=== PATIENT | female | born 1940 | race Caucasian/White ===

== ENCOUNTER → 2016-06-14 | Outpatient (CLI) | payer OTHER | PROVIDERS: ATTEND Internal Medicine | DX: R13.12 Dysphagia, oropharyngeal phase (principal) | CPT/HCPCS: 74230; 92611; G8996; G8997; G8998 ==

== ENCOUNTER → 2017-07-28 | Outpatient (CLI) | payer OTHER | LOC: BHFA 15:30 | PROVIDERS: ATTEND Internal Medicine Cardiovascular Disease | DX: I49.3 Ventricular premature depolarization (principal) ==

== ENCOUNTER → 2017-08-26 | Outpatient (CLI) | payer OTHER | LOC: BHFA 13:00 | PROVIDERS: ATTEND Internal Medicine Cardiovascular Disease | DX: R06.02 Shortness of breath (principal) | CPT/HCPCS: 78452; 93017; A9500; J2785 ==

== ENCOUNTER → 2018-02-20 | Outpatient (CLI) | payer OTHER | LOC: FIMAGING 14:01 | PROVIDERS: ATTEND Registered Nurse | DX: M12.851 Other specific arthropathies, not elsewhere classified, right hip (principal) ==

== ENCOUNTER → 2018-03-15 | Outpatient (CLI) | payer OTHER ==
[~2018-03-15] MED LIST: IOPAMIDOL (ISOVUE-M 200) 20 ML VIAL ONE; LIDOCAINE 1% 300 MG/30 ML SDV ONE
[2018-03-15 09:02] LABS: INR 0.97 (0.83-1.16); PROTIME(PATIENT) 13.1 SEC (12.0-15.0)
== END | disposition home or self-care (01) ==
LOC: FIMAGING 08:23
PROVIDERS: ATTEND Orthopaedic Surgery Orthopaedic Surgery of the Spine
PROC: B01B1ZZ Fluoroscopy of Spinal Cord using Low Osmolar Contrast (ICD-10-PCS; principal; 2018-03-15)
DX: M47.26 Other spondylosis with radiculopathy, lumbar region (principal); M43.16 Spondylolisthesis, lumbar region; M48.061 Spinal stenosis, lumbar region without neurogenic claudication; M43.8X4 Other specified deforming dorsopathies, thoracic region
CPT/HCPCS: 62304; 72132; 72265; Q9966

== ENCOUNTER 2018-04-06 10:34 | Inpatient (IN) | payer OTHER ==
[2018-04-06] MEDS ORDERED: BUPIVACAINE/EPI 0.5% 30 ML SDV ONE (10:53)
[2018-04-06] MEDS ORDERED: VANCOMYCIN 500 MG/10 ML VIAL IV ONE (10:54)
[2018-04-06] MEDS ORDERED: BACITRACIN 50,000 UNITS/10 ML SYR IRR ONE (10:55)
[2018-04-06] MEDS ORDERED: LR 1,000 ML IV ONE (11:28)
--- NOTE | 2018-04-06 12:17 | PDANEPAE ---
ANE Past Medical History - Cardiovascular History Hx Hypertension: Yes Hx Arrhythmias: Yes Hx Chest Pain: No Hx Coronary Artery / Peripheral Vascular Disease: No Hx CHF / Valvular Disease: No Hx Palpitations: No Cardiovascular History Comment: sss, ppm - Pulmonary History Hx COPD: No Hx Asthma/Reactive Airway Disease: No Hx Recent Upper Respiratory Infection: No Hx Oxygen in Use at Home: No Hx Sleep Apnea: Yes Sleep Apnea Screening Result - Last Documented: Positive Pulmonary History Comment: ANITRA uses CPAP - Neurologic History Hx Cerebrovascular Accident: No Hx Seizures: No Hx Dementia: No - Endocrine History Hx Diabetes: No - Renal History Hx Renal Disorders: No - Liver History Hx Hepatic Disorders: No - Neurological & Psychiatric Hx Hx Neurological and Psychiatric Disorders: Yes Neurological / Psychiatric History Comment: essential tremor. anxiety - Cancer History Hx Cancer: No - Congenital Disorder History Hx Congenital Disorders: No - GI History Hx Gastrointestinal Disorders: No - Other Health History Other Health History: loose tooth left back - Chronic Pain History Chronic Pain: No - Surgical History Prior Surgeries: none in last 5 yrs. 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: [employer] Pacemaker Model: Evia DR-T Pacemaker Mode: DDD Date Pacemaker Last Checked: 01/30/18 ANE Patient History - Allergies Allergies/Adverse Reactions: No Known Allergies Allergy (Verified 03/23/18 12:41) - Home Medications Home medications: home medication list seen and reviewed Home Medications: Alendronate Sodium [Fosamax 70 MG (*)] 70 mg PO FR@0700 03/23/18 [Last Taken 1 Week Ago ~03/30/18] Aspirin [Aspirin 81mg (*)] 81 mg PO DAILY 03/23/18 [Last Taken 04/04/18] Carboxymethylcellulose 1% [Refresh Celluvisc (*)] 1 drop EACHEYE DAILY PRN 03/23 [Last Taken 3 Months Ago ~01/04/18] MIRTAZAPINE [Remeron 7.5 mg] 7.5 - 15 mg PO HS 03/23/18 [Last Taken 04/05/18] Multivitamins [Multivitamin (*)] 1 each PO DAILY 03/23/18 [Last Taken 04/05/18] Nebivolol HCl [Bystolic 5 mg (*)] 2.5 mg PO BID 03/23/18 [Last Taken 04/06/18 08 :00] [place]-3 Fatty Acids [Fish Oil 1000 mg (*)] 1,000 mg PO DAILY 03/23/18 [Last Taken 04/05/18] Zolpidem Tartrate [Ambien 5MG (*)] 5 mg PO HS PRN 03/23/18 [Last Taken 04/05/18] - NPO status NPO Status: no food or drink >8 hours NPO Since - Liquids (Date): 04/06/18 NPO Since - Liquids (Time): 09:00 NPO Since - Solids (Date): 04/05/18 NPO Since - Solids (Time): 18:00 - Smoking Hx Smoking Status: Never smoked - Family Anes Hx Family Hx Anesthesia Complications: none ANE Labs/Vital Signs - Vital Signs Blood Pressure: 146/76 Heart Rate: 60 Respiratory Rate: 14 O2 Sat (%): 97 Height: 152.4 cm Weight: 53.524 kg ANE Physical Exam - Airway Neck exam: FROM Mallampati Score: Class 2 Mouth exam: normal dental/mouth exam - Pulmonary Pulmonary: clear to auscultation - Cardiovascular Cardiovascular: regular rate and rhythym - ASA Status ASA Status: III
[2018-04-06] MEDS ORDERED: TRANEXAMIC ACID 1,000 MG in NS 100 ML IV ONE ×2 (13:01→15:45)
[2018-04-06] MEDS ORDERED: ceFAZolin 2 GM/DEXTROSE 100 ML IV ONE (13:01)
--- NOTE | 2018-04-06 13:02 | PDHPUP ---
History & Physical Update H&P update statement: This history and physical update is based on an assessment of the patient which was completed after admission or registration (within 24 hours), but prior to the surgery/procedure. H&P update: H&P reviewed & patient examined, no change in patient's condition since H&P completed
[2018-04-06] MEDS ORDERED: REMIFENTANIL HCL 1 MG VIAL ONE (13:17)
[2018-04-06] MEDS ORDERED: fentaNYL 100 MCG/2 ML INJ ONE ×2 (13:17→14:22)
[2018-04-06] MEDS ORDERED: PROPOFOL 200 MG/20 ML VIAL ONE (13:18)
[2018-04-06] MEDS ORDERED: PROPOFOL/EMULSION 500 MG/50 ML BOTTLE IV ONE (13:18)
[2018-04-06] MEDS ORDERED: ROCURONIUM 50 MG/5 ML VIAL ONE (13:22)
[2018-04-06] MEDS ORDERED: DEXAMETHASONE 4 MG/ML VIAL ONE ×3 (13:22)
[2018-04-06] MEDS ORDERED: SUGAMMADEX SODIUM 200 MG/2 ML VIAL IVP ONE (14:18)
[2018-04-06] MEDS ORDERED: PHENYLEPHRINE 10 MG/ML SDV ONE (14:31)
[2018-04-06] MEDS ORDERED: HYDROmorphONE/DILAUDID 2 MG/ML INJ ONE (15:40)
[2018-04-06] MEDS ORDERED: ceFAZolin 1 GM VIAL ONE ×2 (16:40→16:41)
[2018-04-06] MEDS ORDERED: ONDANSETRON 4 MG/2 ML VIAL ONE (16:57)
[2018-04-06] MEDS ORDERED: ALBUTEROL 3 ML DEYVIAL IH PRN (17:00)
[2018-04-06] MEDS ORDERED: NALOXONE HCL 0.4 MG/ML INJ IVP PRN (17:00)
[2018-04-06] MEDS ORDERED: LABETALOL HCL 5 MG/ML 20 ML MDV IVP PRN (17:00)
[2018-04-06] MEDS ORDERED: HYDROmorphONE/DILAUDID 2 MG/ML INJ IVP PRN (17:00)
[2018-04-06] MEDS ORDERED: METOCLOPRAMIDE 10 MG/2 ML VIAL IVP PRN (17:00)
[2018-04-06] MEDS ORDERED: DIAZEPAM 5 MG/ML 1 ML SYR IVP PRN (17:00)
[2018-04-06] MEDS ORDERED: ONDANSETRON 4 MG/2 ML VIAL IVP PRN (17:00)
[2018-04-06] MEDS ORDERED: fentaNYL 100 MCG/2 ML INJ IVP PRN (17:00)
[2018-04-06] MEDS ORDERED: DEXAMETHASONE 4 MG/ML VIAL IVP PRN (17:00)
[2018-04-06] MEDS ORDERED: MEPERIDINE 25 MG/0.5 ML AMP IVP PRN (17:00)
[2018-04-06] MEDS ORDERED: PROMETHAZINE HCL 25 MG/ML INJ IVP PRN (17:00)
[2018-04-06] MEDS ORDERED: POLYETHYLENE GLYCOL 3350 17 GM PKT PO PRN (17:20)
[2018-04-06] MEDS ORDERED: BISACODYL 10 MG SUPP PR PRN (17:20)
[2018-04-06] MEDS ORDERED: MAGNESIUM HYDROXIDE 30 ML UDCUP PO PRN (17:20)
[2018-04-06] MEDS ORDERED: LACTULOSE 20 GM/30 ML UDCUP PO PRN (17:20)
[2018-04-06] MEDS ORDERED: DIAZEPAM 5 MG/ML 1 ML SYR ONE (17:59)
[2018-04-06] MEDS: METHOCARBAMOL 750 MG TAB PO PRN (18:45)
[2018-04-06] MEDS: ACETAMINOPHEN 500 MG TAB PO SCH (21:08)
[2018-04-06] MEDS: ceFAZolin 2 GM/DEXTROSE 100 ML IV SCH (21:09)
[2018-04-06] MEDS: FAMOTIDINE 20 MG TAB PO SCH (21:10)
[2018-04-06] MEDS: NEBIVOLOL HCL 5 MG TAB PO SCH (21:10)
[2018-04-06] MEDS: SENNOSIDES/DOCUSATE SODIUM TAB PO SCH (21:11)
[2018-04-06] MEDS: oxyCODONE IR 5 MG TAB PO PRN (21:12)
[2018-04-06] MEDS: MIRTAZAPINE 15 MG TAB PO SCH (21:15)
--- NOTE | 2018-04-06 21:17 | SUROPNOTE ---
[facility] Operative Report - Surgery Date: 04/06/18 Pre-operative Diagnoses: L4/5 Degenerative disc disease and spondylosis L4/5 Degenerative spondylolisthesis Bilateral L4 pars insufficiency fractures Lumbar spinal stenosis Post-operative Diagnosis: Same Procedures: Left L4/5 Minimally invasive extreme lateral interbody fusion (XLIF) Lt L4/5 Anterior column plate and screw fixation L4/5 Open Posterior Lumbar Fusion with Instrumentation L5 laminectomy and decompression L4 Brewer laminectomy Reduction of bilateral L4 pars insufficiency fractures Structural use of allograft Structural use of morselized autograft Use of intra-operative fluoroscopy Use of intra-operative neuromonitoring, including EMG and SSEP modalities Use of a surgical microscope Surgeon: Chava Mares MD Assist: Talat Larose Anesthesia: General endotracheal anesthesia Findings: As expected spondylolisthesis, spinal stenosis, facet hypertrophy Estimated Blood Loss: 200mL Drains: Hemovac sewn to skin Specimens: None Complications: None Condition: Transferred to PACU in stable condition Implants: NuVasive XLIF Cage: 10 x 22 x 55 x 15deg Anterior Column Plate: modulus incorporated plate Anterior Screw: 55mm modulus screw Posterior Pedicle Screws: 6.5mm x 45mm Paulie: 40mm x 2 Allograft: 5mL allograft used structurally in the disc space and interbody cage (lateral); morselized local autograft and allograft in the posterolateral gutters Indications: This patient was seen in my office and diagnosed with degenerative spondylolisthesis and spinal stenosis. I have explained all options of treatment for the patient, and the patient has elected to proceed with operative management. I have explained all risks, benefits, and alternatives of the proposed procedure. The risks that we have discussed include , blindness, nerve damage, infection, dural tear, failure of surgery to alleviate pre-operative symptoms, nonunion, and possible need for further operation. I explained separately the risks of allograft, including infection and disease transfer. I specifically discussed the additional risks of XLIF, including but not limited to vascular damage, femoral nerve radiculopathy, or weakness. In addition to the aforementioned procedure, I discussed with the patient that other procedures may be indicated during the course of surgery that would be considered in the patients best interest. The patient expressed understanding of this and agreed to move forward with operative management. Pre-operative: The proposed incision sites were marked in the pre-operative holding area by me. The patient was then taken to the operating room in stable condition. Following smooth induction of general anesthesia, the patient was positioned in a lateral decubitus position on a flat OR table with all down surfaces well- padded. The patient was then prepped and draped in the usual sterile fashion. Pre-operative antibiotics were administered within one hour of the incision. A surgical timeout was performed, and all parties involved in the procedure were in agreement on the correct patient, location, and procedure to be performed. Level localization and spinal pause: After the table was broken to allow for appropriate access to the L4/5 disc space, x-rays were taken to make sure that the operative disc space was properly marked out. Once the disk space was marked out from a lateral approach , a local anesthetic with epinephrine was injected into the area and approximately a 4cm incision was then made over the side overlying the disk directly lateral to it. Subdermal fat was then explored and moved aside. The external and internal oblique muscles were then dissected bluntly using finger and Metzenbaum scissors. The retroperitoneal space was then entered using manual palpation. The transverse process and the disk space of the operative level was palpated. A wire was then placed into the operative disc space and confirmed on both AP and lateral radiographs. Serial dilators were then placed in position here to allow for an XLIF retractor. The XLIF retractor was then placed over the operative disk space. This was again confirmed by AP and lateral radiographs and then a nerve detection system was used to ensure that the lumbar plexus was not violated. Placement of XLIF interbody cage, reduction of spondylolisthesis and bilateral pars insufficiency fractures: A posterior vasu was then placed into the posterior third of the vertebral body and retracted forward or anteriorly. The L4/5 disc space was then incised and the annulus fibrosis was removed. Serial disk preparation tools including a Owusu curette, box cutters, #5 Kerrison and pituitary rongeur was used to prep the disk space. This was also flushed several times to ensure that the disk space was empty of any remaining debris. At this time, a trial was then placed and the appropriately sized cage was selected. The cage was then packed with 5 mL of allograft bone and this was gently malleted in place and again confirmed by both AP and lateral radiographs. The regulator pin inserter was then removed. Attention was then turned towards the plate placement. At this time, an anterior column plate was then placed laterally over the cage itself. A screw hole were then drilled into the cephalad level. Appropriately-sized screws were then placed into both vertebrae with just enough purchase for a bicortical bite within the vertebral body. Again, radiographs confirmed both placement of the graft and the screws. The spondylolisthesis and pars insufficiency fractures were noted to be reduced on lateral xray. At this time, all monitoring was noted to be stable. Closure of lateral incision: Attention was then turned towards closure. Several #1 Vicryl sutures were used to reapproximate the fascia overlying the oblique muscles. A 2-0 Monocryl sutures were then used to repair the subcutaneous tissues and a 4-0 Monocryl was used to repair the skin. Glue was then used over the top of this and this surgical site was then sealed completely. Patient transfer: The patient was then carefully transferred to a Gutierrez table, and positioned prone with all down surfaces well-padded. The patient was then prepped and draped in the usual sterile fashion. A second surgical timeout was performed, and all parties involved in the procedure were in agreement on the correct patient, location, and procedure to be performed. Pedicle screw placement: Using a freehand technique with fluoroscopic assistance, a standard entry point was selected based on bony landmarks. A ship pilot hole was created with a high speed britany. The pedicle tract was then cannulated using a curved Lenke probe. A ball-tipped feeler was then passed through the cannulated tract to ensure that there was no breach on all sides: superior, inferior, medial, lateral, and ventral. A tap was then used up to a size that was 1mm below the final screw size based on pre-operative templating. A ball-tipped feeler was used again in a similar fashion to ensure a safe trajectory without breach. The tract length was then measured and recorded for future pedicle screw selection and placement. The pedicle tract itz then injected with a small amount of microfibrillar collagen agent to ensure hemostasis. This sequence was performed for all levels that would be included in the fusion. An appropriately-sized screw was placed at each level and confirmed fluoroscopically. All screws were then stimulated. Each screw was stimulated and potentials were all above 20 milliAmps. This process was repeated in a similar fashion on the contralateral side. Of note, the right L5 screw was re-adjusted when mA were noted to be 16mA and the screw was noted to be lateral. Decompression: All paraspinal muscles were dissected sub-periostally from the spinous processes and laminae. The dissection was then carried out to include the extent of decompression that was determined before surgery, with care being taken to preserve facet capsules that would not be included in the final fusion. The lateral pars was identified for all levels to be included in the proposed decompression. Using a combination of rongeur, britany, and Kerrison rongeurs, the spinous processes and laminae were removed at all levels to the subarticular lateral recess. Care was taken to leave a minimum of 8mm of bone from the lateral border of the pars at each decompressed level. The ligamentum flavum was resected at all levels. Using a Kerrison rongeur angled back, additional ligamentum flavum was removed from under the caudal aspect of the cephalad-most level, and from under the cephalad aspect of the caudal-most level. Additional care was taken to adequately decompress the lateral recess at all levels. At this time, a ball probe was used to probe all foraminae at the affected levels. Where necessary, a small Kerrison rongeur was used to decompress remaining bone and soft tissue so that all nerve roots would traverse freely through the foraminae. In a Brewer laminectomy fashion, the entire lamina of L4 was removed along with both facets (which were fractured). The cephalad half of L5 was removed. Closure: The surgical field was then copiously irrigated with sterile saline. Vancomycin powder was then applied to the surgical field. A small drain was placed deep to the fascia and brought out of the skin superior and laterally. The drain was then sewn to skin. #1 vicryl suture were used to repair the fascia in an interrupted fashion. Then 2-0 interrupted sutures were used to repair the dermal layer, and a separate 3-0 monofilament suture was used to repair the subcutaneous layer in a running fashion. All sutures used were absorbable. Topical adhesive was then applied to the skin and allowed to dry. A sterile island dressing was applied over the surgical incision. A surgical count was performed before initiation of closure and following the procedure, and all were correct. I was present for the entire procedure. Surgical microscope use: A surgical microscope was utilized throughout the decompressive portion of this case. This was deemed necessary for safe and accurate surgical decompression of affected nerve roots. Neuromonitoring: SSEP, MEP and EMG were used throughout the case from incision until the beginning of closure. There were no significant changes throughout the case, and SSEP signals were at their pre-surgical baseline levels before surgical closure was initiated. assistant professor of theater: A surgical asst was used throughout the case, and deemed necessary for safe neural retraction, hemostasis, and suction. Recovery: The patient was extubated uneventfully in the operating room. The patient was taken to the recovery room in stable condition. Sequential compression devices for VTE prophylaxis were applied to the patients lower extremities, and were ordered to be used while the patient was non-ambulatory. Chemical VTE prophylaxis was considered to be contraindicated for this patient because of the risk of bleeding near the epidural space. Chava Mares MD
[2018-04-06] MEDS: ZOLPIDEM TARTRATE 5 MG TAB PO PRN (22:48)
[2018-04-07] MEDS: oxyCODONE IR 5 MG TAB PO PRN ×2 (03:49→18:29)
[2018-04-07] MEDS: METHOCARBAMOL 750 MG TAB PO PRN ×3 (03:57→18:29)
[2018-04-07] MEDS: ceFAZolin 2 GM/DEXTROSE 100 ML IV SCH (05:51)
[2018-04-07] MEDS: ACETAMINOPHEN 500 MG TAB PO SCH ×3 (05:52→23:26)
[2018-04-07] MEDS: NEBIVOLOL HCL 5 MG TAB PO SCH ×2 (08:11→20:53)
[2018-04-07] MEDS: SENNOSIDES/DOCUSATE SODIUM TAB PO SCH ×2 (08:11→20:53)
[2018-04-07] MEDS: FAMOTIDINE 20 MG TAB PO SCH ×2 (08:12→20:55)
--- NOTE | 2018-04-07 08:53 | POSTANESTH ---
Post Anesthetic Evaluation Cardiovascular Status: Normal, Stable Respiratory Status: Normal, Stable Level of Consciousness/Mental Status: Can Participate in Eval Pain Control: Adequate, Prn Tx Ordered Nausea/Vomiting Control: Adequate, Prn Tx Ordered Complications Possibly Related to Anesthesia: None Noted
--- NOTE | 2018-04-07 10:29 | PDMN ---
Medical Necessity Medical necessity: [facility] [place] S820 Lumbar Fusion: 77yo s/p L4/5 XLIF and L4/5 Lumbar Fusion posterior w/ stelenard, CLARA only
--- NOTE | 2018-04-07 13:10 | GPROG ---
I evaluated Emelia on postoperative day 1 today. She offers no unusual complaints. Pain is well c ontrolled on oral regimen. On physical exam her dressing is clean, dry, intact and left in place. S he has a little bit of thigh numbness, but otherwise no pain whatsoever down the left leg from the __ procedure. Her drain has a minimal amount of output. IMPRESSION: Postoperative day 1 status post lumbar fusion. ASSESSMENT AND PLAN: We will progress the patient with some therapy today and see how she does. I s uspect she may have some limitations and may require some sort of services. Hopefully this is just o utpatient therapy versus home therapy, but we will allow Physical Therapy to determine that. We will touch base later with the patient today. She is weightbearing as tolerated, and she wears a brace w henever she is up and around with Physical Therapy. /[id number]/MODL
--- NOTE | 2018-04-07 13:42 | ASMTCMCOM ---
CM Note CM Note Notes: Pt had planned back surgery, resides alone. PT rec home/outpatient, OT rec home/HHC. Anticipate pt will d/c when medically stable. Pt has a lot of support with children to stay with her and supportive neighbors/friends. Cm available for changes/needs. Date Signed: 04/07/2018 01:41 PM Electronically Signed By:DARCY Calles
[2018-04-07] MEDS: ZOLPIDEM TARTRATE 5 MG TAB PO PRN (20:55)
[2018-04-07] MEDS: MIRTAZAPINE 15 MG TAB PO SCH (20:55)
[2018-04-08] MEDS: oxyCODONE IR 5 MG TAB PO PRN (02:25)
[2018-04-08] MEDS: METHOCARBAMOL 750 MG TAB PO PRN (02:25)
[2018-04-08] MEDS: ACETAMINOPHEN 500 MG TAB PO SCH ×2 (05:41→15:20)
[2018-04-08] MEDS ORDERED: METHYLNALTREXONE BROMIDE 12 MG/0.6 ML INJ SC ONE (09:14)
[2018-04-08] MEDS: NEBIVOLOL HCL 5 MG TAB PO SCH (09:18)
[2018-04-08] MEDS: FAMOTIDINE 20 MG TAB PO SCH (09:18)
[2018-04-08] MEDS: SENNOSIDES/DOCUSATE SODIUM TAB PO SCH (09:19)
--- NOTE | 2018-04-08 09:57 | GPROG ---
At this time, patient complains of constipation. PHYSICAL EXAMINATION: Her abdomen is distended, but nontender. Positive tympany is noted. She has no sensory, motor, or vascular deficits. Drain is in place with good suction. ASSESSMENT AND PLAN: I will take the drain out. I will allow the patient to ambulate today. I will give her some Relistor. If she has a bowel movement and is comfortable going home, we will get her home later today. Will just monitor the patient with regard to her bowels. At this time, she does n ot have an acute abdomen and it is only postoperative day 2, so I am not so worried about this. She has yet to pass gas, but we will simply watch and wait for that. /[id number]/MODL
[2018-04-08] MEDS ORDERED: ONDANSETRON 4 MG/2 ML VIAL IVP PRN ×3 (13:43→21:33)
[2018-04-08] MEDS ORDERED: PROMETHAZINE HCL 25 MG/ML INJ IV PRN (13:44)
[2018-04-08] MEDS ORDERED: NS 1,000 ML IV SCH (14:00)
[2018-04-08] MEDS ORDERED: ERTAPENEM 1 GM in NS 100 ML IV ONE (14:49)
--- NOTE | 2018-04-08 14:51 | PDCONSULT ---
Family Development Specialist Note: #[id number] surgical consult dictated S MD Mai, FACS
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
[2018-04-08 15:45] LABS: PLATELET COUNT 154 10^3/uL (150-400)
[2018-04-08] MEDS ORDERED: IOPAMIDOL (ISOVUE 370) 100 ML BTL IV ONE (15:53)
[2018-04-08] MEDS ORDERED: BUPIVACAINE 0.25% 30 ML SDV ONE ×2 (16:43→17:33)
--- NOTE | 2018-04-08 17:16 | PDANEPAE ---
ANE History of Present Illness Exploratory Laparotomy ANE Past Medical History - Cardiovascular History Hx Hypertension: Yes Hx Arrhythmias: Yes Hx Chest Pain: No Hx Coronary Artery / Peripheral Vascular Disease: No Hx CHF / Valvular Disease: No Hx Palpitations: No Cardiovascular History Comment: sss, ppm - Pulmonary History Hx COPD: No Hx Asthma/Reactive Airway Disease: No Hx Recent Upper Respiratory Infection: No Hx Oxygen in Use at Home: No Hx Sleep Apnea: Yes Sleep Apnea Screening Result - Last Documented: Positive Pulmonary History Comment: ANITRA uses CPAP - Neurologic History Hx Cerebrovascular Accident: No Hx Seizures: No Hx Dementia: No - Endocrine History Hx Diabetes: No - Renal History Hx Renal Disorders: No - Liver History Hx Hepatic Disorders: No - Neurological & Psychiatric Hx Hx Neurological and Psychiatric Disorders: Yes Neurological / Psychiatric History Comment: essential tremor. anxiety - Cancer History Hx Cancer: No - Congenital Disorder History Hx Congenital Disorders: No - GI History Hx Gastrointestinal Disorders: No - Other Health History Other Health History: loose tooth left back - Chronic Pain History Chronic Pain: No - Surgical History Prior Surgeries: none in last 5 yrs. 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: [employer] Pacemaker Model: Evia DR-T Pacemaker Mode: DDD Date Pacemaker Last Checked: 01/30/18 ANE Patient History - Allergies Allergies/Adverse Reactions: No Known Allergies Allergy (Verified 03/23/18 12:41) - Home Medications Home Medications: Alendronate Sodium [Fosamax 70 MG (*)] 70 mg PO FR@0700 03/23/18 [Last Taken 1 Week Ago ~03/30/18] Aspirin [Aspirin 81mg (*)] 81 mg PO DAILY 03/23/18 [Last Taken 04/04/18] Carboxymethylcellulose 1% [Refresh Celluvisc (*)] 1 drop EACHEYE DAILY PRN 03/23 [Last Taken 3 Months Ago ~01/04/18] MIRTAZAPINE [Remeron 7.5 mg] 7.5 - 15 mg PO HS 03/23/18 [Last Taken 04/05/18] Multivitamins [Multivitamin (*)] 1 each PO DAILY 03/23/18 [Last Taken 04/05/18] Nebivolol HCl [Bystolic 5 mg (*)] 2.5 mg PO BID 03/23/18 [Last Taken 04/06/18 08 :00] [place]-3 Fatty Acids [Fish Oil 1000 mg (*)] 1,000 mg PO DAILY 03/23/18 [Last Taken 04/05/18] Zolpidem Tartrate [Ambien 5MG (*)] 5 mg PO HS PRN 03/23/18 [Last Taken 04/05/18] - NPO status NPO Since - Liquids (Date): 04/06/18 NPO Since - Liquids (Time): 09:00 NPO Since - Solids (Date): 04/05/18 NPO Since - Solids (Time): 18:00 - Smoking Hx Smoking Status: Never smoked - Family Anes Hx Family Hx Anesthesia Complications: none ANE Labs/Vital Signs - Labs Result Diagrams: 04/08/18 15:37 04/08/18 15:37 - Vital Signs Blood Pressure: 158/94 Heart Rate: 74 Respiratory Rate: 16 O2 Sat (%): 90 Height: 152.4 cm Weight: 53.524 kg ANE Physical Exam - Airway Neck exam: FROM Mallampati Score: Class 2 Mouth exam: normal dental/mouth exam - Pulmonary Pulmonary: clear to auscultation - Cardiovascular Cardiovascular: regular rate and rhythym - ASA Status ASA Status: III ANE Anesthesia Plan Anesthesia Plan: general endotracheal anesthesia
[2018-04-08] MEDS ORDERED: fentaNYL 100 MCG/2 ML INJ ONE ×4 (17:25→21:11)
[2018-04-08] MEDS ORDERED: ROCURONIUM 100 MG/10 ML VIAL ONE (17:25)
[2018-04-08] MEDS ORDERED: PROPOFOL 200 MG/20 ML VIAL ONE (17:26)
--- NOTE | 2018-04-08 17:35 | GPROG ---
I had a discussion earlier with the patient's nurse regarding her abdomen. She reportedly vomited a large amount earlier. I have re-examined the patient, and also discussed with Dr. Matty Oneill. Abou t an hour ago, we ordered an upright abdominal film to rule out any sort of pathology. PHYSICAL EXAMINATION: The patient does have some tenderness to the abdomen, but this is grossly unch anged from previous. She is also tympanitic in all 4 quadrants. The bandage on the left side is abi an, dry, and intact, as it is on the back. IMAGING: The x-ray demonstrates free air throughout the abdomen. According to the radiologist, as w ell as discussion with Dr. Oneill, this either represents a perforated viscus versus pneumoperitoneum. Based on my recollection, there is certainly no evidence of bowel injury during the procedure, howev er, it is outside the realm of possibility. In discussing the differential diagnosis with Dr. Oneill, it is as follows: Small bowel obstruction, p neumoperitoneum, perforated viscus. He has recommended a CT scan, and I will defer to his note, and expertise for further management later today. From a spine instrumentation perspective, the instrume ntation on the x-ray appears well positioned. There is no suggestion of migration, or failure of the instrumentation. All questions answered with the family, and I will be working with Dr. Oneill regard ing management of the patient. /[id number]/MODL
--- NOTE | 2018-04-08 17:40 | SOAPPROG ---
Downtime Inpatient MD Late Entry SOAP Note: CT reviewed with Dr. Leslie shows large bowel obstruction/tethering of descending colon at the site of fusion. I recommended laparotomy to assess for colon injury and possible diverting colostomy. We discussed the procedure, risks and expected recovery. Dr. Mares will discuss ortho management with patient. Kaya Oneill MD, FACS
[2018-04-08] MEDS ORDERED: PHM DO NOT USE-BUPIVACAINE 0.25% THORACOTOMY MISC SCH (17:45)
[2018-04-08] MEDS ORDERED: BUPIVACAINE 0.25% 270 ML in PUMP SET 1 EA NB SCH (18:00)
[2018-04-08] MEDS ORDERED: fentaNYL 100 MCG/2 ML INJ IVP PRN ×3 (18:22→21:33)
[2018-04-08] MEDS ORDERED: PHENYLEPHRINE HCL 100 MCG/ML SYR ONE (19:12)
[2018-04-08] MEDS ORDERED: DEXMEDETOMIDINE HCL 200 MCG in NS 50 ML IV ONE (20:59)
[2018-04-08] MEDS ORDERED: DEXAMETHASONE 4 MG/ML VIAL ONE (21:09)
[2018-04-08] MEDS ORDERED: ONDANSETRON 4 MG/2 ML VIAL ONE (21:11)
[2018-04-08] MEDS ORDERED: NALOXONE HCL 0.4 MG/ML INJ IVP PRN ×2 (21:16→21:33)
[2018-04-08] MEDS ORDERED: LR 500 ML IV PRN ×2 (21:16→21:33)
[2018-04-08] MEDS ORDERED: PROMETHAZINE HCL 25 MG/ML INJ IVP PRN ×2 (21:16→21:33)
[2018-04-08] MEDS ORDERED: SUGAMMADEX SODIUM 200 MG/2 ML VIAL IVP ONE (21:22)
[2018-04-08] MEDS ORDERED: ceFAZolin 1 GM VIAL ONE ×2 (21:22)
--- NOTE | 2018-04-08 22:06 | POSTANESTH ---
Post Anesthetic Evaluation Cardiovascular Status: Normal, Stable Respiratory Status: Normal, Stable, Similar to Pre-op Cond. Level of Consciousness/Mental Status: Can Participate in Eval, Moderately Sleepy Pain Control: Adequate, Prn Tx Ordered Nausea/Vomiting Control: Adequate, Prn Tx Ordered Complications Possibly Related to Anesthesia: None Noted
--- NOTE | 2018-04-08 22:17 | POSTOPPROG ---
Post Op Note Date of Operation: 04/08/18 Surgeon: Obi Oneill (, FACS) Hydroelectric Production Manager: Todd Shankar, [employer] Anesthesiologist: aD Donohue MD Anesthesia: GET(General Endotracheal) Pre-op Diagnosis: large bowel obstruction Post-op Diagnosis: obstruction proximal descending colon/serosal injury/ ureteral obstruction Indication: 2 days post XLIF with LBO/free air Procedure: lap large bowel enterolysis/repair serosal injury/ureterolysis Findings: see dictated op note for details Inf/Abcess present in the surg proc area at time of surgery?: No EBL: Minimal (25 ml) Complications: none Specimen(s): swab retroperitoneal fluid
[2018-04-09] MEDS ORDERED: GLYCERIN ADULT 1 EACH SUPP PR ONE (04:17)
--- NOTE | 2018-04-09 04:17 | GOP ---
DATE OF OPERATION: 04/08/2018 SURGEON: Obi Oneill MD, FACS PROFESSOR OF MATHEMATICS: Todd Shankar CST. ANESTHESIA: General endotracheal. ANESTHESIOLOGIST: Matty Ortiz MD. PREOPERATIVE DIAGNOSIS: 1. Large bowel obstruction. 2. Status post retroperitoneal approach to L4-5 interbody fusion (XLIF). POSTOPERATIVE DIAGNOSIS: 1. Large bowel obstruction secondary to mechanical entrapment proximal descending colon 2. Serosal injury, proximal descending colon. 3. Partial ureteral obstruction. 4. Benign-appearing bilateral adnexal cysts. PROCEDURE PERFORMED: 1. Laparotomy and enterolysis large-bowel, proximal descending colon. 2. Repair of serosal injury, proximal descending colon. 3. Ureterolysis. FINDINGS: 1. Prior midline incision without anterior abdominal wall adhesions. Extensive dilatation of the large bowel and distal small bowel. Point of obstruction at the proximal descending colon at the site of the recently performed retroperitoneal spine procedure due to entrapment of the posterolateral bowel wall between remaining orthopedic device and psoas. Serosal tear 3-4 cm. 2. Partial incarceration of the colonic mesentery and ureter. Previously removed hardware with peritoneotomy. No evidence of full-thickness bowel injury. Moderate-sized right adnexal cyst and smaller left paratubal cyst, benign in appearance. ESTIMATED BLOOD LOSS: 25 mL. INDICATIONS: The patient is a 77-year-old female who is 2 days status post XLIF at L4-5 for spondylolisthesis. The patient had an uneventful course initially and complained of abdominal pain today. Dr. Mares ordered a plain film of the abdomen, which showed evidence of bowel obstruction versus ileus and free air in the peritoneal cavity. Surgical consultation was requested. A contrast enema CT was performed, which showed complete large bowel obstruction in the descending colon. There was, however, no extravasation of contrast. The point of obstruction appeared to correspond to the recently placed orthopedic hardware. Dr. Mares took the patient to the operating room to remove a portion of the hardware, which he performed through the previous retroperitoneal incision. I scrubbed in during that surgery and observed the bowel in the field as well as a moderate-sized peritoneotomy. There was, however, no feculent material, and the edges of the bowel could not be well defined. After he removed the hardware, he closed the wound per his usual fashion, and the patient was then repositioned in a supine position. DESCRIPTION OF PROCEDURE: Before proceeding with the 2nd portion of the operation, namely the laparotomy, a debriefing was performed with the operating room staff and a time-out performed to identify the goals of the procedure as well as risks. The patient had a Romero catheter draining her bladder and had approximately 300 mL of urine output at this point in the operation. The planned incision site was infiltrated with 0.25% Marcaine and incised from above to below the umbilicus. The peritoneal cavity was entered through the midline fascia and peritoneum, and the abdomen was explored. The bowel was markedly distended and filled with gas. Exposure was somewhat difficult due to the dilated bowel. The Omni-Tract retractor was then used and deployed to facilitate exposure. The point of obstruction where the bowel was tethered was into the retroperitoneum appearing trapped between the previous operative field and the psoas muscle. It appeared as if the edge of the bowel had been rolled somehow into the retroperitoneum along with the mesentery of the bowel. It was densely adherent. There was an apparent serosal tear, which made dissection somewhat more treacherous. I incised the peritoneum widely above and below the point of obstruction and dissected medial along the mesentery and used a combination of sharp and blunt dissection to free up the edge of the bowel. As this was rotated medially a large serosal injury was confirmed. The mucosa appeared intact, however. To allow full evaluation of the bowel and bring it up into the field, I performed mobilization of the splenic flexure, taking down the splenocolic ligament with the Harmonic Scalpel and liberating the splenic flexure. This allowed careful inspection of the serosal injury, which was then repaired transversely with interrupted 3-0 Vicryl sutures approximating serosa to serosa. Re-inspecting the retroperitoneal area. After mobilizing the peritoneum it could be seen that the mesentery of the large bowel remained somewhat tethered into the retroperitoneum along with the edge of the ureter. These were carefully dissected away from the edge of the psoas muscle using the Harmonic Scalpel. A culture of the retroperitoneal fluid, which was mildly bloody, was obtained and submitted for aerobes and anaerobes. The wound was irrigated and packed with laparotomy sponge. The small bowel, which had been eviscerated was then returned to the peritoneal cavity and was run from the ligament of Treitz to the ileocecal valve and no additional bowel injury was noted. The transverse colon and ascending colon, though dilated, appeared viable. The sigmoid colon had begun to fill with gas and had some chronic diverticula, but no acute inflammation. Bilateral adnexal cysts were observed, both appeared benign on the left being paratubal. The uterus was small. Romero catheter was palpable within the bladder. The laparotomy sponge was removed from the retroperitoneum and hemostasis appeared secure. The bowel was gently returned to its anatomic position in the left pericolic gutter, and the ureter was noted to peristalse normally. Hemostasis appeared secure. The midline incision was closed with a continuous running #1 looped PDS suture. Subcutaneous tissues were irrigated, approximated with 3-0 Vicryl suture. Skin was closed with saadia. OnQ catheters were tunneled from either side distally aspirated with no return of blood and flushed with 0.25% Marcaine plain and attached to a 270 mL bulb delivering 4 mL/h of Marcaine total. Sterile dressings were placed. Patient was returned extubated to the recovery room in satisfactory condition. COUNTS: Needle, sponge, and instrument count correct. COMPLICATIONS: None. /[id number]/MODL MTDD
--- NOTE | 2018-04-09 04:26 | SOAPPROG ---
SOAP Progress Note Assessment/Plan: Assessment: s/p laparotomy/large bowel enterolysis and repair of serosal tear proximal descending colon/ureterolysis for mechanical entrapment from orthopedic hardware. I explained the operative findings to her and the importance of patiently waiting for the return of bowel function before feeding her. Plan: She is receiving 24 hours of prophylactic Ancef. Will limit oral meds until ileus is resolved. Activity per Dr. Mares 04/09/18 04:21 Subjective: awake and alert, mild pain from abdominal incision denies nausea does not like Romero Objective: Vital Signs Temp Pulse Resp BP Pulse Ox 36.6 C 60 14 105/59 L 98 04/08/18 23:15 04/09/18 00:00 04/09/18 00:00 04/09/18 00:00 04/09/18 00:00 Laboratory Results 04/08/18 15:37 04/08/18 15:37 04/07/18 04/08/18 04/09/18 05:59 05:59 05:59 Intake Total 2033 226 0892 Output Total 375 850 520 Balance 0262 834 4546 - Pending Discharge Pending Discharge Within 24 Hours: No Pending Discharge Within 48 Hours: No Physical Exam - Physical Exam General Appearance: alert, no apparent distress Respiratory: lungs clear, decreased breath sounds Cardiac/Chest: regular rate, rhythm Abdomen: soft, distended, other (hypoactive bowel sound/dressing dry) Pelvic Exam: deferred Rectal: deferred Skin: warm/dry Extremities: normal inspection Neuro/Psych: normal mood/affect, oriented x 3 ICD10 Worksheet Patient Problems: Problems Problem Status Onset Hypertension Acute Large bowel obstruction Acute Spondylolisthesis at L4-L5 level Acute Ureteral obstruction, left Acute - ICD10 Problem Qualifiers (1) Large bowel obstruction (2) Ureteral obstruction, left (3) Hypertension (4) Spondylolisthesis at L4-L5 level
--- NOTE | 2018-04-09 04:38 | GPROG ---
Since my last dictation, seen and evaluated the CT scan and had a discussion with Dr. Oneill. After a lot of discussion, we think the best thing for her would be a lateral exploration to see if there is any aspect of the plate that may be tacking down her peritoneum and/or large bowel. Obviously, ideal ly there is just a piece of omentum or peritoneum that is held down with the screw or plate. So the purpose of the 1st stage of the operation is going to be to explore laterally, decompress any air russell t may be present, remove the screw and/or plate from the side, as well as free of any aspect of perit oneum and/or large bowel that may be punctured or entrapped. Went over all risks, benefits, and alte rnatives of the operation. The patient understands these. She does note there is a potential for fu rther risk to the bowel. The plan is to stage a general surgery access with possible diverting colos sugey afterwards. There is also risk that there may be bowel contents which increase her risk for inf ection here as well. Ultimately, I did go over the surgery at length with both the patient and her s on, and they seem to have an excellent understanding of risks, benefits, and alternatives moving forw phil. All questions answered. We will move back shortly with the patient into the room. /[id number]/MODL
[2018-04-09] MEDS: MIRTAZAPINE 15 MG TAB PO SCH ×2 (04:49→20:13)
[2018-04-09] MEDS: ACETAMINOPHEN 500 MG TAB PO SCH ×4 (04:49→20:13)
[2018-04-09] MEDS: NEBIVOLOL HCL 5 MG TAB PO SCH ×3 (04:50→20:13)
[2018-04-09] MEDS: SENNOSIDES/DOCUSATE SODIUM TAB PO SCH ×3 (04:50→20:13)
[2018-04-09] MEDS ORDERED: GLYCERIN PEDIATRIC 1 EACH SUPP PR ONE (05:00)
[2018-04-09] MEDS: ceFAZolin 2 GM/DEXTROSE 100 ML IV SCH ×2 (05:15→13:53)
[2018-04-09] MEDS: D5W 1/2 NS W/ 20 KCl/L 1,000 ML IV SCH ×2 (05:15→20:21)
--- NOTE | 2018-04-09 06:48 | GOP ---
DATE OF OPERATION: 04/08/2018 SURGEON: Chava Mares MD TELEVISION PROGRAM DIRECTOR: Obi Oneill MD. ANESTHESIA: General. PREOPERATIVE DIAGNOSIS: Free air in the abdomen. POSTOPERATIVE DIAGNOSIS: Peritoneotomy. PROCEDURE PERFORMED: 1. Exploration of huge mass, and exploration of abdominal contents. 2. Removal of instrumentation, L4 and L5 segment. 3. Irrigation and debridement. FINDINGS: ESTIMATED BLOOD LOSS: 5 cc. INDICATIONS: The patient is a very pleasant 77-year-old woman who underwent previous spine fusion, who was noted to have abdominal findings as I have described. She has been indicated for exploration of lateral incision and full instrumentation. She and her son understood the risks, benefits, alternatives, and agreed to performed surgery. The patient was then positioned with the right side down on the table with surfaces padded. A standard XLIF approach to this direct lateral spine. A surgical time-out was performed. All parties involved were in agreement of procedure indication. DESCRIPTION OF PROCEDURE: Approach: Standard incision was incised laterally, and the stitches were removed. The incision from the previous operation was opened easily, and there was little or no scar tissue present. Immediately visible were loops of small bowel and a small peritoneotomy, which was thought to be about 1.5 cm in diameter, just large enough for a finger to explore. An XLIF protractor was then docked onto the lateral aspect of the spine. This was accomplished using serial dilation as well as manual palpation of the surgical site. The plate was readily manually palpated. The XLIF retractor was then docked on top of this. A lateral radiograph was then taken to confirm that the plate was indeed in the center of the incision and exposure site. Attention was then turned toward exploration. Dr. Oneill performed an independent exploration into the field with lighted retractors, and determined that again, there is a small peritoneotomy as I described. There is no evidence feces or bowel contrast from the enema. At this time, the peritoneal contents were then swept forward and cephalad. The entirety of the plate was then visualized. This was then taken out readily using a screwdriver. The entirety of the lateral plate as well as the screw within the L4 body was approached. X-ray was then taken, which demonstrated a stable construct of the plate. The decision was made at this time not to replace the plate, as the patient had bilateral posterior screw fixations noted to be good. Decision was , then, made to close the lateral incision primarily. Attention was turned to closure. The oblique muscles then allowed to re- approximate. Again, one last inspection was performed laterally, and again no evidence of peritoneum or bowel was noted to be incarcerated or held under the patient's lateral plate. COMPLICATIONS: None. CONDITION: Stable, for exploratory laparotomy by Dr. Oneill. CLOSURE: 2-0 Monocryl sutures were use to reapproximate the dermal layer, and the 4-0 Strata Fix barbed suture was used to repair the skin. Glue was then applied over top of the skin, and a sterile dressing then applied. I was present for all portions of the procedure. Dr. Oneill was present for the exploration portion of the procedure. TREATMENT PLAN: The patient was then put supine and Dr. Oneill performed an exploratory laparotomy based on the intraoperative findings, as well as discussion that we had with the patient before the operation. For details of this procedure, please see Dr. Oneill' note. I plan to discuss his findings with him following his portion of the operation. /[id number]/MODL MTDD
[2018-04-09] MEDS: FAMOTIDINE 20 MG TAB PO SCH (07:27)
[2018-04-09] MEDS: FAMOTIDINE 20 MG/NACL 50 ML IV SCH (08:44)
[2018-04-09 10:56] LABS: PLATELET COUNT 191 10^3/uL (150-400)
--- NOTE | 2018-04-09 12:44 | GDS ---
The patient underwent a left L4-5 XLIF, followed by posterior lumbar decompression and fusion with in strumentation L4 and L5 on 04/06/2018. She progressed well throughout postop day 1; however, develop ed some abdominal pain and was noted to have some bloating. An abdominal x-ray was done noting free air, and subsequently, a CT scan with rectal contrast was performed, noting some tethering of the graeme cending colon, as well as the perineum. After a long discussion with Dr. Obi Oneill, the decision was made to remove part of the instrumentation at the L4 level and then perform an exploratory laparo sugey. This was done on postoperative day 2 or April 09, 2018. The lateral/anterior plate was subs equently removed by Dr. Mares, and Dr. Oneill performed a subsequent exploratory laparotomy. A small part of the peritoneum was freed up from under the plate, and during the exploratory laparotomy, no s igns of serious bowel injury was noted. Patient subsequently progressed well with physical therapy. Pain was well controlled on an oral enrico men. She resumed a regular diet and was subsequently cleared for discharge. Moving forward, the pat ient is to follow up with Dr. Oneill for evaluation of abdominal surgery and to follow up with Dr. Wallace urena in 2 weeks time for an incision check. They have my cell phone and are to call if they developed any further abdominal symptoms. She is also to wear the brace whenever she is up and around walking more than short trips to the bathroom, and has my cell phone and is encouraged to call if anything co mes up. She is not to bend, lift greater than 10 pounds, or twist about the lumbar spine. She has n arcotic pain medication, as well as a muscle relaxer for pain control in the meantime. /[id number]/MODL
--- NOTE | 2018-04-09 12:59 | GPROG ---
DATE OF SERVICE: 04/09/2018 I saw and evaluated the patient this morning. I have also discussed her plan of care with Dr. Oneill, as well as the patient's son. PHYSICAL EXAM: NEUROLOGIC: She is neurologically intact distally. ABDOMEN: She reports improvemen t of her abdominal pain. The incisions are under sterile dressings and left clean, dry, and intact. ASSESSMENT/PLAN: We will remove the patient's drain. I think she has done quite well from the shay ion operation to remove a potentially offending screw, and her exploratory laparotomy was encouraging that there did not appear to be any serious bowel injury. We will progress the patient slowly. I w ill work with Dr. Oneill regarding an appropriate disposition, and we will get her up with therapy oscar hayden /[id number]/MODL
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
[2018-04-10 05:42] LABS: PLATELET COUNT 190 10^3/uL (150-400)
[2018-04-10] MEDS: ACETAMINOPHEN 500 MG TAB PO SCH ×3 (06:10→21:33)
[2018-04-10] MEDS ORDERED: BISACODYL 10 MG SUPP PR ONE (07:09)
--- NOTE | 2018-04-10 07:22 | SOAPPROG ---
THONY Progress Note Assessment/Plan: Assessment: s/p laparotomy/large bowel enterolysis and repair of serosal tear proximal descending colon/ureterolysis for mechanical entrapment from orthopedic hardware. I explained the operative findings to her and the importance of patiently waiting for the return of bowel function before feeding her. Plan: She is receiving 24 hours of prophylactic Ancef. Will limit oral meds until ileus is resolved. Activity per Dr. Mares 04/09/18 04:21 Subjective: awake/alert, no flatus Objective: Vital Signs Temp Pulse Resp BP Pulse Ox 36.9 C 65 17 110/78 96 04/10/18 00:00 04/10/18 00:00 04/10/18 00:00 04/10/18 00:00 04/10/18 00:00 Microbiology 04/08/18 21:15 Gram Stain - Final Other - Eswab Laboratory Results 04/10/18 05:27 04/10/18 05:27 04/09/18 04/10/18 04/11/18 05:59 05:59 05:59 Intake Total 1700 2171 Output Total 1270 500 200 Balance 430 1671 -200 - Pending Discharge Pending Discharge Within 24 Hours: No Pending Discharge Within 48 Hours: No Physical Exam - Physical Exam General Appearance: mild distress Respiratory: lungs clear Cardiac/Chest: regular rate, rhythm Abdomen: non-tender, soft, distended, other (hypoactive bowel sounds) Pelvic Exam: deferred Rectal: deferred Skin: warm/dry Neuro/Psych: no motor/sensory deficits, normal mood/affect, oriented x 3 ICD10 Worksheet Patient Problems: Problems Problem Status Onset Hypertension Acute Large bowel obstruction Acute Spondylolisthesis at L4-L5 level Acute Ureteral obstruction, left Acute - ICD10 Problem Qualifiers (1) Large bowel obstruction (2) Ureteral obstruction, left (3) Hypertension (4) Spondylolisthesis at L4-L5 level
--- NOTE | 2018-04-10 07:43 | GPROG ---
I saw and evaluated Emelia at the bedside today. Overall, she reports marked improvement of the abdominal pain. She reports a little bit of left thigh pain consistent with the lateral approach. The drain was removed by me today, and the tip was noted to be intact. ASSESSMENT/PLAN: The patient was also seen by Dr. Oneill at the same time as me. He feels that she would probably benefit from further bowel training and would like to wait for her to pass some gas over the next few days before considering discharge. At this point, discharge is pending Dr. Oneill's evaluation as she has done otherwise well from the spine operation. /[id number]/MODL MTDD
[2018-04-10] MEDS: FAMOTIDINE 20 MG/NACL 50 ML IV SCH (08:04)
[2018-04-10] MEDS: NEBIVOLOL HCL 5 MG TAB PO SCH ×2 (08:04→21:33)
[2018-04-10] MEDS: SENNOSIDES/DOCUSATE SODIUM TAB PO SCH ×2 (09:44→21:35)
--- NOTE | 2018-04-10 12:42 | ASMTCMCOM ---
CM Note CM Note Notes: Patient is receiving 24 hours of prophylactic Ancef. Patient needs to await the return of bowel function before she can begin a normal diet. Oral meds are being limited. OT is recommending inpatient rehab. PT is recommending home with outpatient rehab. Most likely patient will D/C home independent. CM will follow. Date Signed: 04/10/2018 12:41 PM Electronically Signed By:Racheal Bridges LCSW
[2018-04-10] MEDS: ERTAPENEM 1 GM in NS 100 ML IV SCH (15:39)
[2018-04-10] MEDS: MIRTAZAPINE 15 MG TAB PO SCH (21:35)
[2018-04-10] MEDS: ZOLPIDEM TARTRATE 5 MG TAB PO PRN (21:40)
[2018-04-10] MEDS: D5W NS 1,000 ML IV SCH (22:12)
[2018-04-11 05:40] LABS: PLATELET COUNT 230 10^3/uL (150-400)
[2018-04-11] MEDS: ACETAMINOPHEN 500 MG TAB PO SCH ×3 (05:59→21:23)
--- NOTE | 2018-04-11 08:27 | SOAPPROG ---
SOAP Progress Note Assessment/Plan: Assessment: s/p laparotomy/large bowel enterolysis and repair of serosal tear proximal descending colon/ureterolysis for mechanical entrapment from orthopedic hardware. I explained the operative findings to her and the importance of patiently waiting for the return of bowel function before feeding her. She is now growing anaerobes in her retroperitoneal cultures, likely translocation from the injured colon Plan: continue Invanz/ID consult today 04/09/18 04:21 04/11/18 08:25 Subjective: denies nausea, small amount of gas Objective: Vital Signs Temp Pulse Resp BP Pulse Ox 37.0 C 65 15 99/48 L 91 L 04/11/18 07:26 04/11/18 07:26 04/11/18 07:26 04/11/18 07:26 04/11/18 07:26 Microbiology 04/08/18 21:15 Gram Stain - Final Other - Eswab Laboratory Results 04/11/18 05:13 04/11/18 05:13 04/10/18 04/11/18 04/12/18 05:59 05:59 05:59 Intake Total 2171 3053 Output Total 500 600 Balance 1671 2453 Physical Exam - Physical Exam General Appearance: mild distress Abdomen: distended, other (high pitched tinkling bowel sounds, diffuse mild tenderness) Pelvic Exam: deferred Rectal: deferred Skin: warm/dry Neuro/Psych: normal mood/affect ICD10 Worksheet Patient Problems: Problems Problem Status Onset Hypertension Acute Large bowel obstruction Acute Spondylolisthesis at L4-L5 level Acute Ureteral obstruction, left Acute - ICD10 Problem Qualifiers (1) Large bowel obstruction (2) Ureteral obstruction, left (3) Hypertension (4) Spondylolisthesis at L4-L5 level
[2018-04-11] MEDS: ERTAPENEM 1 GM in NS 100 ML IV SCH (08:59)
[2018-04-11] MEDS: FAMOTIDINE 20 MG/NACL 50 ML IV SCH (09:00)
[2018-04-11] MEDS: NEBIVOLOL HCL 5 MG TAB PO SCH ×2 (09:30→21:20)
[2018-04-11] MEDS: SENNOSIDES/DOCUSATE SODIUM TAB PO SCH ×2 (09:33→21:17)
--- NOTE | 2018-04-11 10:11 | GPROG ---
Saw and evaluated the patient this morning. Overall, she is certainly doing much better today than s he was yesterday. We are maintaining her n.p.o. status. She had a bowel movement this morning, which was by report from the nurses, a large amount of loose stool, and Senna is since being held. PHYSICAL EXAMINATION: GENERAL: Dressing is clean, dry, and intact. ABDOMEN: Appears to be somewha t less tender than it was before, and really just appears to be surgical pain. IMPRESSION: Status post XLIF/PLDS for spinal stenosis and spondylolisthesis. ASSESSMENT AND PLAN: I think at this point, we are really just waiting for General Surgery and Dr. Raji sherwood to evaluate further and discuss disposition with the patient. I certainly think that her bowel m ovement is encouraging at this point. I have been in touch with the son. I have had a discussion wi th him as well. He has my cell phone, and we will discuss further. Of note, I have discussed with 1 of my colleagues, who will be covering for me over the next 2 days, as I will be out of town; iesha martin, I will be available for discussion at any point. /[id number]/MODL
[2018-04-11] MEDS: D5W NS 1,000 ML IV SCH (14:21)
--- NOTE | 2018-04-11 19:10 | GCON ---
INFECTIOUS DISEASES CONSULTATION DATE OF CONSULTATION: 04/11/2018 REQUESTING PHYSICIAN: Obi Oneill M.D. REASON FOR CONSULTATION: Retroperitoneal culture showing growth of anaerobes after colonic serosal injury. HISTORY OF PRESENT ILLNESS: The patient is a 77-year-old female who underwent left-sided L4-5 minimally invasive extreme lateral interbody fusion with the use of plate and screw fixation on 04/06/2018, who I am now asked to see in consultation for positive retroperitoneal cultures associated with colonic serosal tear. Postoperatively, the patient was noted to develop symptoms compatible with large bowel obstruction and x-ray findings revealed intraabdominal free air. CT scan of the abdomen and pelvis was subsequently performed which showed extensive dilatation of the colon with intraperitoneal and retroperitoneal air. It appeared that the lower descending colon was tethered in the region of L4- 5 instrumentation hardware. Based on those findings, the patient was taken to the operating room on 04/08/2018, at which point in time she was noted to have large bowel obstruction associated with mechanical entrapment of the proximal descending colon with associated serosal injury of the proximal descending colon. There was no evidence of elmer perforation or fecal peritonitis. The patient was noted to have a peritoneotomy at the time of exploration and the patient underwent removal of instrumentation at the L4-5 segment with retained cage. There was no gross contamination of the spinal hardware noted. Retroperitoneal fluid intraoperatively was noted to be mildly bloody and cultures were obtained. The patient has been maintained on ertapenem postoperatively. A Gram stain of the retroperitoneal fluid showed 1+ white blood cells with no organisms being seen; cultures are now showing growth of mixed anaerobic nidia with no isolation of Staphylococcus aureus, beta- hemolytic Streptococci or Pseudomonas. Given the patient's positive culture findings, I am now asked to assist in her ongoing management. The patient does complain of postoperative abdominal pain and distention. She describes some passage of green stool earlier today. No fevers have been noted postoperatively. The patient has had a leukocytosis present with left shift. Given these findings, I am now asked to assist in her ongoing management. PAST MEDICAL HISTORY: Cardiac arrhythmia requiring pacemaker placement, hypertension, sick sinus syndrome with pacemaker placement, hyperlipidemia. PAST SURGICAL HISTORY: As above, pacemaker placement. CURRENT MEDICATIONS: Ertapenem 1 g IV daily, bupivacaine pump, Pepcid 20 mg IV daily, Robaxin as needed, Remeron 15 mg p.o. at bedtime, Bystolic 2.5 mg p.o. twice daily, Senokot 1-2 p.o. twice daily. ALLERGIES: No known drug allergies. SOCIAL HISTORY: The patient does not smoke. She notes that she drinks 2 alcoholic beverages daily. FAMILY HISTORY: Coronary artery disease. REVIEW OF SYSTEMS: The patient was noted to have some confusion overnight, which now has improved. Unless otherwise noted, the remainder of a 10-system review is unremarkable. PHYSICAL EXAMINATION: VITAL SIGNS: Temperature 36.6, heart rate 61, respiratory rate 14, blood pressure 105/67, oxygen saturation 92% on room air. GENERAL: Patient is well nourished and well developed in no acute distress. She appears nontoxic. HEENT: There is no scleral icterus, conjunctival injection, or conjunctival petechiae. Oropharynx shows dry mucous membranes. Dentition in good repair. No nasal discharge or sinus tenderness. NECK: Supple without palpable lymphadenopathy or thyromegaly. CHEST: Clear to auscultation bilaterally without adventitious sounds. Pacemaker is present in the left upper chest without erythema or tenderness. CARDIOVASCULAR: Regular rate and rhythm with a 2/6 systolic murmur at the left and right upper sternal border. No gallops or rubs. ABDOMEN: Soft, mildly distended, mildly tender to palpation. Surgical dressing is in place. Bowel sounds are not present. BACK: Postoperative dressing is in place. There is no surrounding tenderness to palpation. MUSCULOSKELETAL: No cyanosis, clubbing or edema. SKIN: No rashes present. No stigmata of endocarditis. The skin is warm and dry to touch. NEUROLOGIC: Patient is alert and interacts appropriately with examiner. Cranial nerves 2-12 are grossly intact. Muscle tone and bulk are normal. LYMPHATICS: No cervical or supraclavicular nodes. LABORATORY DATA: White blood cell count 15.7, hematocrit 33.1, platelets 230, neutrophils 83%. Serum creatinine is 0.6, bilirubin 0.8, AST 40, ALT 25, alkaline phosphatase 53, albumin 2.9. Gram stain of the retroperitoneal fluid showing 1+ white blood cells with no organisms and showing growth of mixed anaerobic nidia. IMPRESSION: 1. Colonic obstruction associated with serosal tear and probable translocation of mixed intestinal nidia with isolation of anaerobes: The patient is now status post relief of obstruction. Given the isolation of anaerobic nidia, will continue with antibiotic therapy in the form of ceftriaxone and metronidazole (favor this over ertapenem given metronidazole's outstanding anaerobic activity and with the patient's recent confusion will eliminate possible contributions from ertapenem). Duration of antibiotic therapy will be dependent on clinical course. Operative findings reviewed with both Dr. Oneill and Dr. Mares with no overt contamination of orthopedic hardware noted intraoperatively. RECOMMENDATIONS: 1. Ceftriaxone 1 g IV daily. 2. Flagyl 500 mg IV q.8 hours. 3. Discontinue ertapenem. 4. Followup clinical response to above measures with further modification of antibiotic accordingly. Thank you for this consultation. We will continue to follow the patient with you. /[id number]/MODL MTDD
[2018-04-11] MEDS: MIRTAZAPINE 15 MG TAB PO SCH (21:23)
[2018-04-12] MEDS: ACETAMINOPHEN 500 MG TAB PO SCH ×3 (05:01→21:56)
[2018-04-12 05:26] LABS: PLATELET COUNT 226 10^3/uL (150-400)
[2018-04-12] MEDS: D5W NS 1,000 ML IV SCH ×2 (06:31→10:22)
[2018-04-12] MEDS: NEBIVOLOL HCL 5 MG TAB PO SCH ×2 (10:20→21:56)
[2018-04-12] MEDS: SENNOSIDES/DOCUSATE SODIUM TAB PO SCH ×2 (10:22→22:11)
--- NOTE | 2018-04-12 10:52 | SOAPPROG ---
SOAP Progress Note Assessment/Plan: Assessment: s/p laparotomy/large bowel enterolysis and repair of serosal tear proximal descending colon/ureterolysis for mechanical entrapment from orthopedic hardware. I explained the operative findings to her and the importance of patiently waiting for the return of bowel function before feeding her. we started a clear liquid diet today. No fevers, but rising wbc She is now growing anaerobes in her retroperitoneal cultures, likely translocation from the injured colon Plan: continue Ceftriaxone/Flagyl per ID (consult appreciated) 04/09/18 04:21 04/11/18 08:25 04/12/18 10:49 Subjective: awake and alert/reports less pain, loose stool x 2, denies nausea Objective: Vital Signs Temp Pulse Resp BP Pulse Ox 36.8 C 69 15 119/72 91 L 04/12/18 08:00 04/12/18 10:20 04/12/18 08:00 04/12/18 10:20 04/12/18 08:00 Microbiology 04/08/18 21:15 Gram Stain - Final Other - Eswab Anaerobic Culture - Final Laboratory Results 04/12/18 05:00 04/12/18 05:00 04/11/18 04/12/18 04/13/18 05:59 05:59 05:59 Intake Total 3053 1227 900 Output Total 600 400 Balance 2453 827 900 - Pending Discharge Pending Discharge Within 24 Hours: No Pending Discharge Within 48 Hours: No Physical Exam - Physical Exam General Appearance: no apparent distress Abdomen: normal bowel sounds, soft, other (incision o.k./OnQ catheters removed) Pelvic Exam: deferred Rectal: deferred Skin: warm/dry Neuro/Psych: alert, normal mood/affect, oriented x 3 ICD10 Worksheet Patient Problems: Problems Problem Status Onset Hypertension Acute Large bowel obstruction Acute Spondylolisthesis at L4-L5 level Acute Ureteral obstruction, left Acute - ICD10 Problem Qualifiers (1) Large bowel obstruction (2) Ureteral obstruction, left (3) Hypertension (4) Spondylolisthesis at L4-L5 level
[2018-04-12] MEDS: FAMOTIDINE 20 MG/NACL 50 ML IV SCH (12:10)
--- NOTE | 2018-04-12 12:40 | SOAPPROG ---
THONY Progress Note Assessment/Plan: Assessment: Plan: Objective: Vital Signs Temp Pulse Resp BP Pulse Ox 36.8 C 69 15 119/72 91 L 04/12/18 08:00 04/12/18 10:20 04/12/18 08:00 04/12/18 10:20 04/12/18 08:00 Microbiology 04/08/18 21:15 Gram Stain - Final Other - Eswab Anaerobic Culture - Final Laboratory Results 04/12/18 05:00 04/12/18 05:00 04/11/18 04/12/18 04/13/18 05:59 05:59 05:59 Intake Total 3053 1227 900 Output Total 600 400 Balance 2453 827 900 ICD10 Worksheet Patient Problems: Problems Problem Status Onset Hypertension Acute Large bowel obstruction Acute Spondylolisthesis at L4-L5 level Acute Ureteral obstruction, left Acute
--- NOTE | 2018-04-12 13:14 | PCMIDPN ---
Assessment/Plan: Assessment: 77-year-old woman with a small amount of infected peritoneal fluid secondary to mucosal translocation complicating large-bowel obstruction. Overall clinically improved with no objective or subjective fevers in the past 24 hr. Suspect leukocytosis is a stress response to surgery and or ischemia reperfusion injury postoperatively. With no fluid collection in no mucosal injury to the large bowel expect no more than 7 days of antibiotics necessary. 1. Large bowel obstruction secondary to entrapment from orthopedic hardware, status post enterolysis 04/08/2018 2. Large bowel serosal injury secondary to 1., repaired 04/08/2018 3. Infected retroperitoneal fluid, likely polymicrobial 4. Status post L4-L5 anterior column plate and screw fixation, L5 laminectomy, L4 laminectomy, L4/L5 posterior lumbar fusion with instrumentation 04/06/2018 5. Neutrophilic leukocytosis, expect ischemia reperfusion injury and/or operative stress response Plan: 1. Continue ceftriaxone 1 g daily 2. Continue metronidazole 500 mg IV q.8 hours 3. Discussed in detail with patient and patient's son potential side effects of current antibiotics which includes rash, diarrhea, C diff colitis 04/12/18 13:16 Subjective: No fever or chills. Multiple loose bowel movements over the past 24 hr. Abdomen is sore, not painful. No nausea, advanced to clear liquid diet by surgeon today. Objective: Vital Signs Temp Pulse Resp BP Pulse Ox 36.8 C 69 15 119/72 91 L 04/12/18 08:00 04/12/18 10:20 04/12/18 08:00 04/12/18 10:20 04/12/18 08:00 Microbiology 04/08/18 21:15 Gram Stain - Final Other - Eswab Laboratory Results 04/12/18 05:00 04/12/18 05:00 04/11/18 04/12/18 04/13/18 05:59 05:59 05:59 Intake Total 3053 1227 900 Output Total 600 400 Balance 2453 827 900 Medications Generic Name Dose Route Start Last Admin Trade Name Freq PRN Reason Stop Dose Admin Ceftriaxone Sodium/Dextrose 50 mls @ 100 mls/hr 04/12/18 09:00 04/12/18 10:19 Rocephin 1 Gm (Premix) IV 05/12/18 08:59 50 mls DAILY MARYLU Protocol Metronidazole/Sodium Chloride 100 mls @ 100 mls/hr 04/11/18 14:00 04/12/18 05 :03 Flagyl 500 Mg (Premix) IV 05/11/18 13:59 100 mls Q8HRS [facility] Protocol Microbiology 04/08/18 21:15 Other - Eswab Gram Stain - Final 04/08/18 21:15 Other - Eswab Anaerobic Culture - Preliminary Laboratory Tests 04/11/18 04/12/18 05:13 05:00 WBC 15.65 H 19.45 H Absolute Neuts (auto) 13.05 H 16.18 H Absolute Lymphs (auto) 0.70 L 1.26 - Physical Exam General Appearance: alert, no apparent distress, non-toxic EENT: No scleral icterus Respiratory: lungs clear, normal breath sounds, No crackles, No wheezing Neck: full range of motion, supple, normal inspection Cardiac/Chest: regular rate, rhythm, No bradycardia, No tachycardia, No diastolic murmur, No systolic murmur Extremities: normal inspection, No pedal edema, No erythema Abdomen: non-tender, soft, No distended, No guarding (Midline surgical incision with saadia in place, minimal erythema, no extending erythema adjacent to incision, no induration or fluctuance) Back: normal inspection Skin: normal color, No rash, No induration, No fluctuance Neuro/Psych: alert, normal mood/affect, oriented x 3 - Time Spent With Patient Time Spent with Patient: greater than 35 minutes (Greater than 35 min with more than half of this time spent [id number] encounter discussing microbiology of intra-abdominal infections, antibiotic duration, a potential antibiotic side effects) Time Spent with Patient: Greater than 35 minutes spent on this patients care, greater than 50% of time spent counseling, educating, and coordinating care regarding the above mentioned plan. ICD10 Worksheet Patient Problems: Problems Problem Status Onset Large bowel obstruction Acute Ureteral obstruction, left Acute Hypertension Acute Spondylolisthesis at L4-L5 level Acute
--- NOTE | 2018-04-12 13:37 | GPROG ---
SUBJECTIVE: Patient feeling much better today. Still with some abdominal as well as back pain. She has been working with physical and occupational therapists. She had 2 episodes of diarrhea today. She denies fevers or chills. Pain is well controlled. PHYSICAL EXAM: Dressings and incisions are clean, dry, and intact. No erythema, drainage, or signs of infection. Abdomen is nondistended but is mildly tender to palpation. The vital signs are stable . She has been afebrile. LABORATORY STUDIES: She did have an increase in leukocytosis to 19.45 from 15.65 in the last 24 hour s. The left shift is stable. ASSESSMENT AND PLAN: Status post XLIF and PLDS for spinal stenosis and spondylolisthesis, complicate d by peritoneotomy requiring subsequent hardware removal and exploratory laparotomy. The patient is progressing with well in terms of her spine and therapy. Her bowel movement is encouraging. This wa s discussed with her and her son. In terms of restrictions, no bending, twisting, or lifting. We wi ll continue to defer to Infectious Disease as well as General Surgery for postsurgical care. The pat iesoo understands and agrees. Questions answered. /[id number]/MODL
--- NOTE | 2018-04-12 13:45 | ASMTCMCOM ---
CM Note CM Note Notes: Met with pt and son Fortino and went through d/c options, provided SNF and HHC list. Pt is under consideration for [facility] inpatient rehab. Pt and son open to information and state they do not know yet what their ideal d/c is and want to see pt medically improve to guide d/c planning. Pt started clear liquid diet today. OT/PT had been recommending inpatient rehab, today PT rec HHC/24 hr supervision/SNF. ID consulting, MALGORZATA to follow for pt antibiotic plan. Date Signed: 04/12/2018 01:44 PM Electronically Signed By:DARCY Calles
[2018-04-12] MEDS: MIRTAZAPINE 15 MG TAB PO SCH (21:56)
[2018-04-12] MEDS: ZOLPIDEM TARTRATE 5 MG TAB PO PRN (22:01)
[2018-04-13 05:49] LABS: PLATELET COUNT 237 10^3/uL (150-400)
[2018-04-13] MEDS: ACETAMINOPHEN 500 MG TAB PO SCH ×3 (05:50→21:59)
--- NOTE | 2018-04-13 07:43 | SOAPPROG ---
SOAP Progress Note Assessment/Plan: Assessment: s/p laparotomy/large bowel enterolysis and repair of serosal tear proximal descending colon/ureterolysis for mechanical entrapment from orthopedic hardware. No fevers. Leukocytosis resolving. Hypokalemia/resolving post op ileus She is now growing anaerobes in her retroperitoneal cultures, likely translocation from the injured colon Plan: continue Ceftriaxone/Flagyl per ID (consult appreciated) advance to full liquid diet anticipate IP Rehab vs. SNF at discharge Kaya Oneill MD, FACS 04/09/18 04:21 04/11/18 08:25 04/12/18 10:49 04/13/18 07:40 Subjective: Debbie is awake and reports having slept well, tolerated clear liquids still feels bloated Objective: Vital Signs Temp Pulse Resp BP Pulse Ox 36.6 C 71 14 108/82 H 92 04/12/18 23:47 04/12/18 23:47 04/12/18 23:47 04/12/18 23:47 04/12/18 23:47 Microbiology 04/08/18 21:15 Gram Stain - Final Other - Eswab Laboratory Results 04/13/18 04:47 04/13/18 04:47 04/12/18 04/13/18 04/14/18 05:59 05:59 05:59 Intake Total 1227 2075 Output Total 400 150 Balance 827 1925 Physical Exam - Physical Exam General Appearance: no apparent distress Respiratory: normal breath sounds, decreased breath sounds Cardiac/Chest: regular rate, rhythm Abdomen: soft, distended, other (tympanitic/moderate distention/incision healing without signs of infection) Pelvic Exam: deferred Rectal: deferred Skin: warm/dry Neuro/Psych: alert, normal mood/affect ICD10 Worksheet Patient Problems: Problems Problem Status Onset Hypertension Acute Large bowel obstruction Acute Spondylolisthesis at L4-L5 level Acute Ureteral obstruction, left Acute - ICD10 Problem Qualifiers (1) Large bowel obstruction (2) Ureteral obstruction, left (3) Hypertension (4) Spondylolisthesis at L4-L5 level
[2018-04-13] MEDS: FAMOTIDINE 20 MG TAB PO SCH (09:03)
[2018-04-13] MEDS: NEBIVOLOL HCL 5 MG TAB PO SCH ×2 (09:03→21:31)
[2018-04-13] MEDS: POTASSIUM CL 20 MEQ PKT PO SCH ×2 (09:06→21:26)
[2018-04-13] MEDS: SENNOSIDES/DOCUSATE SODIUM TAB PO SCH ×2 (09:06→21:19)
--- NOTE | 2018-04-13 10:00 | GPROG ---
DATE OF SERVICE: 04/13/2018 The patient has done quite well during hospitalization. She has progressed well. She has moved on t o a full liquid diet at this point and seems to be tolerating that. She has been slow with PT, limit ed obviously at this point by her additional operation, but is overall in good spirits. I had a brie f discussion with her today and she is overall quite happy with her status at this point. From my pe rspective, she can be discharged whenever she is deemed appropriate for outpatient management by Dr. Oneill. /[id number]/MODL
--- NOTE | 2018-04-13 14:05 | PCMIDPN ---
Assessment/Plan: Assessment: 77-year-old woman with a small amount of infected peritoneal fluid secondary to mucosal translocation complicating large-bowel obstruction. With overall clinical improvement and decrease in leukocytosis from surgery, 7 days of antibiotic therapy sufficient for washed out intra-abdominal infection. 1. Large bowel obstruction secondary to entrapment from orthopedic hardware, status post enterolysis 04/08/2018 2. Large bowel serosal injury secondary to 1., repaired 04/08/2018 3. Infected retroperitoneal fluid, likely polymicrobial 4. Status post L4-L5 anterior column plate and screw fixation, L5 laminectomy, L4 laminectomy, L4/L5 posterior lumbar fusion with instrumentation 04/06/2018 5. Neutrophilic leukocytosis, expect ischemia reperfusion injury and/or operative stress response; improved Plan: 1. Continue ceftriaxone 1 g daily, stop after dose on 04/15 2. Continue metronidazole 500 mg IV q.8 hours; stop after doses on 04/15 3. Discussed in detail with patient and patient's son potential side effects of current antibiotics which includes rash, diarrhea, C diff colitis Subjective: No fever or chills. Three loose stools yesterday and 1 loose stool this morning. Abdominal discomfort present but no elmer abdominal pain. Advanced to full liquid diet today tolerated clear liquids yesterday. No new rash. Objective: Vital Signs Temp Pulse Resp BP Pulse Ox 36.4 C 67 14 122/71 H 92 04/13/18 08:00 04/13/18 09:03 04/13/18 08:00 04/13/18 09:03 04/13/18 08:00 Microbiology 04/08/18 21:15 Gram Stain - Final Other - Eswab Laboratory Results 04/13/18 04:47 04/13/18 04:47 04/12/18 04/13/18 04/14/18 05:59 05:59 05:59 Intake Total 1227 2075 Output Total 400 150 Balance 827 1925 Microbiology 04/08/18 21:15 Other - Eswab Gram Stain - Final 04/08/18 21:15 Other - Eswab Anaerobic Culture - Preliminary Laboratory Tests 04/12/18 04/13/18 04/13/18 05:00 04:47 04:47 WBC 19.45 H 12.56 H Absolute Neuts (auto) 16.18 H 9.57 H Absolute Lymphs (auto) 1.26 1.39 Creatinine 0.6 Medications Generic Name Dose Route Start Last Admin Trade Name Jolene PRN Reason Stop Dose Admin Ceftriaxone Sodium/Dextrose 50 mls @ 100 mls/hr 04/12/18 09:00 04/13/18 09:06 Rocephin 1 Gm (Premix) IV 05/12/18 08:59 50 mls DAILY [facility] Protocol Metronidazole/Sodium Chloride 100 mls @ 100 mls/hr 04/11/18 14:00 04/13/18 05 :50 Flagyl 500 Mg (Premix) IV 05/11/18 13:59 100 mls Q8HRS [facility] Protocol - Physical Exam General Appearance: alert, no apparent distress, non-toxic EENT: No scleral icterus Respiratory: lungs clear, normal breath sounds, No respiratory distress, No crackles, No wheezing Neck: full range of motion, supple Cardiac/Chest: regular rate, rhythm, No bradycardia, No tachycardia, No diastolic murmur, No systolic murmur Extremities: No pedal edema, No swelling, No erythema Abdomen: normal bowel sounds, soft, No distended, No guarding (Minimal tenderness around the incision site; mild erythema at the incision site, no spreading erythema, no induration, no fluctuance; no drainage from the incision) Skin: normal color, No rash, No erythema Neuro/Psych: alert, normal mood/affect, oriented x 3 - Time Spent With Patient Time Spent with Patient: greater than 25 minutes Time Spent with Patient: Greater than 25 minutes spent on this patients care, greater than 50% of time spent counseling, educating, and coordinating care regarding the above mentioned plan. ICD10 Worksheet Patient Problems: Problems Problem Status Onset Hypertension Acute Large bowel obstruction Acute Spondylolisthesis at L4-L5 level Acute Ureteral obstruction, left Acute
--- NOTE | 2018-04-13 16:48 | ASMTCMCOM ---
CM Note CM Note Notes: Pt IV antibiotic to stop 04/15/18. Today PT rec HHC/24/hr supervision/SNF, OT rec HHC/24/hr supervision. Spoke at [facility] with pt and son Fortino, they feel comfortable with d/c to pt home with HHC and 24/hr supervision. Pt children will be able to provide 24/hr supervision. Fortino is provided [employer] as he may be interested in hiring unskilled care also. [facility] chosen to provide PT/OT at home, referral sent in [employer]. Pt addres/phone verified. CM to follow. D/c plan: Home with HHC and 24/hr supervision Date Signed: 04/13/2018 04:47 PM Electronically Signed By:DARCY Calles
[2018-04-13] MEDS: MIRTAZAPINE 15 MG TAB PO SCH (21:19)
[2018-04-13] MEDS: ZOLPIDEM TARTRATE 5 MG TAB PO PRN (21:25)
[2018-04-14 05:36] LABS: PLATELET COUNT 278 10^3/uL (150-400)
[2018-04-14] MEDS: ACETAMINOPHEN 500 MG TAB PO SCH ×3 (05:56→23:26)
--- NOTE | 2018-04-14 08:37 | GPROG ---
SUBJECTIVE: Patient feels like she continues to make progress, is feeling well. Still has some back and abdominal soreness. Still having some loose stools, however, abdominal pain much improved. Den ies fevers or chills. OBJECTIVE: Afebrile. Vital signs stable. Incisions clean, dry, and intact. Abdomen is soft, nonte nder, nondistended. Distal lower extremities sensation intact to light touch. L4-S1 motor intact to EHL, FHL, tibialis anterior, gastrocsoleus. LABORATORY DATA: Leukocytosis decreased to 10.65 this morning. ASSESSMENT AND PLAN: A 77-year-old female status post lumbar spine surgery complicated by serosal co lonic injury. The patient is continuing to do well, tolerating a full liquid diet. Infectious Disea se recommends 1 more day of current IV antibiotic regimen of ceftriaxone and Flagyl. The patient is stable from an orthopedic and spinal standpoint and may be discharged when cleared by Infectious Dise ase and General Surgery. /[id number]/MODL
[2018-04-14] MEDS: NEBIVOLOL HCL 5 MG TAB PO SCH ×2 (08:50→21:56)
[2018-04-14] MEDS: FAMOTIDINE 20 MG TAB PO SCH (08:50)
[2018-04-14] MEDS: SENNOSIDES/DOCUSATE SODIUM TAB PO SCH ×2 (08:52→21:56)
[2018-04-14] MEDS: POTASSIUM CL 20 MEQ PKT PO SCH ×2 (08:52→22:05)
--- NOTE | 2018-04-14 10:04 | SOAPPROG ---
SOAP Progress Note Assessment/Plan: Assessment: s/p laparotomy/large bowel enterolysis and repair of serosal tear proximal descending colon/ureterolysis for mechanical entrapment from orthopedic hardware. No fevers. Leukocytosis resolving. Hypokalemia/resolving post op ileus She is now growing anaerobes in her retroperitoneal cultures, likely translocation from the injured colon Plan: continue Ceftriaxone/Flagyl per ID (consult appreciated) advance to regular diet Patient is interested in going home rather than IP rehab/SNF, which I think is an option since she has a son that would stay with her S MD Mai, FACS 04/09/18 04:21 04/11/18 08:25 04/12/18 10:49 04/13/18 07:40 04/14/18 10:04 Subjective: ambulatory with a walker tolerated full liquid diet Objective: Vital Signs Temp Pulse Resp BP Pulse Ox 36.9 C 70 17 128/65 H 91 L 04/14/18 08:00 04/14/18 08:50 04/14/18 08:00 04/14/18 08:50 04/14/18 08:00 Microbiology 04/08/18 21:15 Gram Stain - Final Other - Eswab Laboratory Results 04/14/18 04:46 04/14/18 04:46 04/13/18 04/14/18 04/15/18 05:59 05:59 05:59 Intake Total 2075 1025 450 Output Total 150 Balance 1925 1025 450 Physical Exam - Physical Exam General Appearance: no apparent distress Respiratory: lungs clear, decreased breath sounds Abdomen: non-tender, soft Pelvic Exam: deferred Rectal: deferred Extremities: normal range of motion Neuro/Psych: normal mood/affect, oriented x 3 ICD10 Worksheet Patient Problems: Problems Problem Status Onset Hypertension Acute Large bowel obstruction Acute Spondylolisthesis at L4-L5 level Acute Ureteral obstruction, left Acute - ICD10 Problem Qualifiers (1) Large bowel obstruction (2) Ureteral obstruction, left (3) Hypertension (4) Spondylolisthesis at L4-L5 level
--- NOTE | 2018-04-14 18:53 | PCMIDPN ---
Assessment/Plan: Assessment/Plan: * Colonic obstruction with serosal tear and GI translocation of anaerobic nidia post lumbar spine surgery: Clinically improved post relief of obstruction and washout. Completing 7 days of ceftriaxone and metronidazole which will end tomorrow. Will plan to discontinue antibiotic therapy at this point in time. Discussed with patient that potential risk of hardware contamination present based on operative findings of peritoneotomy although suspect this likely will be of low risk. Discussed that no specific measures available to fully define this consideration other than no contamination noted intraoperatively. Favor clinical observation rather than suppressive antibiotic therapy at this time. Advised of warning signs of infection including fever, chills, incisional drainage, or recurrent back/abdominal pain. Time spent, greater than 35 min, of which greater than half was spent in education/counseling/coordination of care including discussion with patient, son and care coordination with nursing staff, Dr. Oneill, and Dr. Mares. 04/14/18 18:49 Subjective: Patient feels significantly improved. Minimal abdominal pain and no significant back pain. Objective: Vital Signs Temp Pulse Resp BP Pulse Ox 36.4 C 74 18 90/54 L 93 04/14/18 16:00 04/14/18 16:00 04/14/18 16:00 04/14/18 16:00 04/14/18 16:00 Microbiology 04/08/18 21:15 Gram Stain - Final Other - Eswab Laboratory Results 04/14/18 04:46 04/14/18 04:46 04/13/18 04/14/18 04/15/18 05:59 05:59 05:59 Intake Total 2075 1025 1450 Output Total 150 800 Balance 1925 1025 650 Ceftriaxone # 6 Metronidazole # 6 Retroperitoneal cultures with growth of mixed anaerobic nidia - Physical Exam General Appearance: alert, no apparent distress EENT: No scleral icterus, No thrush Cardiac/Chest: regular rate, rhythm Abdomen: non-tender, other (Incision intact with mild erythema at inferior margin of incision which is appropriate for postoperative course; no drainage present), No distended Back: other (Incision intact without surrounding erythema or drainage; nontender to palpation) ICD10 Worksheet Patient Problems: Problems Problem Status Onset Hypertension Acute Large bowel obstruction Acute Spondylolisthesis at L4-L5 level Acute Ureteral obstruction, left Acute
[2018-04-14] MEDS: ZOLPIDEM TARTRATE 5 MG TAB PO PRN (21:54)
[2018-04-14] MEDS: MIRTAZAPINE 15 MG TAB PO SCH (21:55)
[2018-04-15] MEDS: ACETAMINOPHEN 500 MG TAB PO SCH (05:01)
[2018-04-15 05:04] LABS: PLATELET COUNT 292 10^3/uL (150-400)
[2018-04-15] MEDS: FAMOTIDINE 20 MG TAB PO SCH (08:58)
[2018-04-15] MEDS: SENNOSIDES/DOCUSATE SODIUM TAB PO SCH (08:58)
[2018-04-15] MEDS: POTASSIUM CL 20 MEQ PKT PO SCH (09:00)
--- NOTE | 2018-04-15 10:27 | SOAPPROG ---
SOAP Progress Note Assessment/Plan: Assessment: s/p ex lap and colon repair 04/08, doing well. Agree with d/c, diet and activity discussed at length with patient and family. Questions answered. Plan: 04/15/18 10:25 Subjective: Patient without complaints, minimal pain, no N/V. Alex po. Ambulating with walker. Objective: Vital Signs Temp Pulse Resp BP Pulse Ox 36.6 C 71 15 92/58 L 93 04/15/18 08:00 04/15/18 08:00 04/15/18 08:00 04/15/18 08:00 04/15/18 08:00 Microbiology 04/08/18 21:15 Gram Stain - Final Other - Eswab Laboratory Results 04/15/18 04:40 04/15/18 04:40 04/14/18 04/15/18 04/16/18 05:59 05:59 05:59 Intake Total 1025 1450 133 Output Total 800 Balance 1025 650 133 Alert, NAD Abd soft, NTTP Inc C/D/I Post inc dressing intact ICD10 Worksheet Patient Problems: Problems Problem Status Onset Hypertension Acute Large bowel obstruction Acute Spondylolisthesis at L4-L5 level Acute Ureteral obstruction, left Acute
--- NOTE | 2018-04-15 10:45 | ASMTLACE ---
LACE Length of stay for Answers: 7-13 days current admission Acuity / Level of Answers: Yes Care: Did the patient have an inpatient admission? Comorbidities - select Answers: Other Notes: HTN all that apply # of Emergency department Answers: 0 visits in the last 6 months Social determinants Answers: Mental health diagnosis (anxiety, depression, pers onality disorders, etc.) Score: 12 Date Signed: 04/15/2018 10:44 AM Electronically Signed By:DARCY Calles
[2018-04-15] MEDS: NEBIVOLOL HCL 5 MG TAB PO SCH (11:13)
[2018-04-15 11:14] VITALS: BP 114/64
--- NOTE | 2018-04-15 12:12 | ASMTCMCOM ---
CM Note CM Note Notes: Pt medically stable for d/c home with [facility] PT/OT and 24/hr supervision. Pt son Fortino is bedside and will transport pt home after her IV antibiotic. Deana at [facility] updated. reports he will input orders in today approx 1700, the orders will be obtained by [facility] via [employer]. Date Signed: 04/15/2018 12:11 PM Electronically Signed By:DARCY Calles
--- NOTE | 2018-04-15 15:30 | GPROG ---
I had a discussion with the patient as well as her nurse this morning. She is clearly doing much bet ter. She has been in the hospital for many days at this point. I think she can safely be discharged home. I have had discussions with Dr. Oneill and Dr. Walton who have been extremely helpful in her care . At this point, we will discontinue antibiotics. We will discharge her home on a regular diet. sunil will see Dr. Oneill for staple removal early next week and she will see me on Tuesday for an incision check and a progress check. She has my cell phone and her sons do as well. I encouraged them to tanya l me if anything comes up, but clearly, at this point, I think she is over the hump and done quite we ll with regard to her recovery. All their questions were answered at this time. I will see the tri ent back on Tuesday. /[id number]/MODL
== END 2018-04-15 14:21 | disposition home health service (06) | DRG 460 ==
LOC: F3N 10:34 → F2N 04-08 23:13 → F3N 04-11 10:55
PROVIDERS: ADMIT Orthopaedic Surgery Orthopaedic Surgery of the Spine; ATTEND Orthopaedic Surgery Orthopaedic Surgery of the Spine
PROC: 0SG00A0 Fusion of Lumbar Vertebral Joint with Interbody Fusion Device, Anterior Approach, Anterior Column, Open Approach (ICD-10-PCS; principal; 2018-04-06 12:30)
PROC: 01NB0ZZ Release Lumbar Nerve, Open Approach (ICD-10-PCS; principal; 2018-04-06 12:30)
PROC: 00NY0ZZ Release Lumbar Spinal Cord, Open Approach (ICD-10-PCS; principal; 2018-04-06 12:30)
PROC: 4A1004G Monitoring of Central Nervous Electrical Activity, Intraoperative, Open Approach (ICD-10-PCS; principal; 2018-04-06 12:30)
PROC: 0SG00AJ Fusion of Lumbar Vertebral Joint with Interbody Fusion Device, Posterior Approach, Anterior Column, Open Approach (ICD-10-PCS; principal; 2018-04-06 12:30)
PROC: 8E0WXBZ Computer Assisted Procedure of Trunk Region (ICD-10-PCS; principal; 2018-04-06 12:30)
PROC: 0DQM0ZZ Repair Descending Colon, Open Approach (ICD-10-PCS; 2018-04-08 15:15)
PROC: 0DNE0ZZ Release Large Intestine, Open Approach (ICD-10-PCS; 2018-04-08 15:15)
PROC: 0SP00AZ Removal of Interbody Fusion Device from Lumbar Vertebral Joint, Open Approach (ICD-10-PCS; 2018-04-08 15:15)
DX: M51.36 Other intervertebral disc degeneration, lumbar region (principal); K91.30 Postprocedural intestinal obstruction, unspecified as to partial versus complete; K91.72 Accidental puncture and laceration of a digestive system organ or structure during other procedure; M84.48XA Pathological fracture, other site, initial encounter for fracture; M43.16 Spondylolisthesis, lumbar region; M47.26 Other spondylosis with radiculopathy, lumbar region; M48.061 Spinal stenosis, lumbar region without neurogenic claudication; Z95.0 Presence of cardiac pacemaker; I25.10 Atherosclerotic heart disease of native coronary artery without angina pectoris; F41.9 Anxiety disorder, unspecified; G25.0 Essential tremor; E78.5 Hyperlipidemia, unspecified; I10 Essential (primary) hypertension; G47.33 Obstructive sleep apnea (adult) (pediatric); M81.0 Age-related osteoporosis without current pathological fracture
CPT/HCPCS: 97116-GP; 97161-GP; 97164-GP; 97165-GO; 97168-GO; 97530-GO; 97530-GP; 97535-GO; 97760-GP; C1713; C1762; J0690; J0696; J1100; J1170; J1335; J2212; J2270; J2370; J2405; J2704; J3010; J3360; J3370; Q9967

== ENCOUNTER → 2018-08-07 | Outpatient (CLI) | payer OTHER | LOC: FIMAGING 08:36 | PROVIDERS: ATTEND Internal Medicine | DX: Z12.31 Encounter for screening mammogram for malignant neoplasm of breast (principal); Z13.820 Encounter for screening for osteoporosis; M85.80 Other specified disorders of bone density and structure, unspecified site; Z79.899 Other long term (current) drug therapy; Z98.1 Arthrodesis status ==